=== PATIENT | male | born 1970 | race Caucasian/White ===

== ENCOUNTER → 2018-09-29 17:09 | Emergency (ER) | payer BC ==
--- NOTE | 2018-09-29 18:31 | ED ---
Abdominal Pain/Male - HPI Summary HPI Summary: A 48 y/o M referred from for ultrasound presents to ED with c/o intermittent R groin pain onset 2 weeks ago. The pain radiates down his RLE, and is described as "soreness." Associated sx: diffuse abd pain. Denies back pain, urinary sx. The symptoms are worse at night. He has not felt any lumps in his abd or groin. Surgical hx: appy, vasectomy. Pt notes lifting some heavy boxes while at work within the month. PMHx: asthma. - History of Current Complaint Chief Complaint: EDAbdPain Stated Complaint: SENT FROM [facility] FOR U/S OF GROIN PER PT Time Seen by Provider: 09/29/18 18:25 Hx Obtained From: Patient Onset/Duration: Lasting Weeks, Still Present Timing: Constant, Lasting Weeks Severity Initially: Mild Severity Currently: Mild Pain Intensity: 2 Pain Scale Used: 0-10 Numeric Location: Groin - R Radiates: Yes Radiates to: Other - RLE Character: Other: - soreness Aggravating Factor(s): Other: - worse at night Associated Signs And Symptoms: Positive: Other - pos: abd pain. Negative: Back Pain, Urinary Symptoms - Allergies/Home Medications Allergies/Adverse Reactions: Allergies Allergy/AdvReac Type Severity Reaction Status Date / Time No Known Allergies Allergy Verified 10/29/14 17:44 PMH/Surg Hx/FS Hx/Imm Hx Previously Healthy: Yes Endocrine/Hematology History: Denies: Hx Diabetes Cardiovascular History: Denies: Hx Congestive Heart Failure, Hx Hypertension Respiratory History: Reports: Hx Asthma History: Denies: Hx Renal Disease Neurological History: Reports: Hx Migraine - Surgical History Surgery Procedure, Year, and Place: vastectomy, appy Hx Anesthesia Reactions: No Infectious Disease History: No Infectious Disease History: Denies: History Other Infectious Disease, Traveled Outside the [place] in Last 30 Days - Family History Known Family History: Negative: Hypertension, Diabetes, Respiratory Disease - Social History Occupation: Employed Full-time Lives: With Family Alcohol Use: Rare Substance Use Type: Reports: None Smoking Status (MU): Never Smoked Tobacco Review of Systems Positive: Abdominal Pain Negative: dysuria, hematuria Musculoskeletal: Other - pos: r groin pain Negative: Other - neg: back pain All Other Systems Reviewed And Are Negative: Yes Physical Exam - Summary Physical Exam Summary: Appearance: Well-appearing, Well-nourished, lying in bed comfortably Skin: Warm, dry, no obvious rash Eyes: sclera anicteric, no conjunctival pallor ENT: mucous membranes moist, pharynx appears normal Neck: Supple, nontender Respiratory: Clear to auscultation, no signs of respiratory distress Cardiovascular: Normal S1, S2. No murmurs. Normal distal pulses in tibial and radial bilaterally. Abdomen: Soft, nontender, normal active bowel sounds present Musculoskeletal: Tenderness in R groin Neurological: A&Ox3, awake and alert, mentation is normal, speech is fluent and appropriate Psychiatric: affect is normal, does not appear anxious or depressed Triage Information Reviewed: Yes Vital Signs On Initial Exam: Initial Vitals Temp Pulse Resp BP Pulse Ox 97.7 F 61 16 136/90 100 09/29/18 17:36 09/29/18 17:36 09/29/18 17:36 09/29/18 17:36 09/29/18 17:36 Vital Signs Reviewed: Yes Diagnostics - Vital Signs Vital Signs Temp Pulse Resp BP Pulse Ox 09/29/18 17:36 97.7 F 61 16 136/90 100 - Laboratory Result Diagrams: 09/29/18 19:11 09/29/18 19:11 Lab Statement: Any lab studies that have been ordered have been reviewed, and results considered in the medical decision making process. - CT A/P CT CT Interpretation Completed By: Radiologist Summary of CT Findings: IMPRESSION: No acute intra-abdominal findings. ED provider has reviewed this report. Re-Evaluation - Re-Evaluation 1 Re-Evaluation Time: 21:31 Comment: Discussing CT and lab results with pt. Abdominal Pain Male Course/Dx - Course Course Of Treatment: Pt is a 48 y/o M presenting with intermittent R groin pain that radiates down his RLE, and generalized abd pain onset 2 weeks ago. Denies back pain, urinary sx. Surgical hx: appy, vasectomy. Lab work is unremarkable. A/P CT is unremarkable. This was obtained as the patient is quite difficult to examine due to the degree of his tenderness and apprehension, with the purpose to exclude a hernia. Will discharge patient home. - Diagnoses Provider Diagnoses: Right groin pain Discharge - Sign-Out/Discharge Documenting (check all that apply): Patient Departure - DC Patient Received Moderate/Deep Sedation with Procedure: No - Discharge Plan Condition: Good Disposition: HOME Patient Education Materials: Groin Pain (ED) Referrals: Brennon RECINOS,Berhane Valles [Primary Care Provider] - 1 Week (if not improving) - Billing Disposition and Condition Condition: GOOD Disposition: Home - Attestation Statements Document Initiated by Loboibe: Yes Documenting Scribe: Vincenzo Duckworth Provider For Whom Scribe is Documenting (Include Credential): Dr. Brodie Urena MD Scribe Attestation: Vincenzo Rodriguez scribed for Dr. Brodie Urena MD on 09/30/18 at 1057. Scribe Documentation Reviewed: Yes Provider Attestation: The documentation as recorded by the Vincenzo arrington accurately reflects the service I personally performed and the decisions made by , Dr. Brodie Urena MD Status of Scribe Document: Viewed
[2018-09-29 19:25] LABS: ABS Basophils 0 10^3/ul (0-0.2); ABS Eosinophils 0.2 10^3/ul (0-0.6); ABS Lymphocytes 2.2 10^3/ul (1.0-4.8); ABS Monocytes 0.8 10^3/ul (0-0.8); ABS Neutrophils 5.8 10^3/ul (1.5-7.7); ABS Nucleated RBC 0 10^3/ul; Eosinophil % 1.9 %; Hematocrit 42 % (36-46); Hemoglobin 14.3 g/dL (14.0-18.0); Lymphocyte % 24.1 %; Mean Corpuscular HGB Conc 34 g/dL (31-36); Mean Corpuscular Hemoglobin 28 pg (27-31); Mean Corpuscular Volume 84 fL (80-94); Mean Platelet Volume 9.3 fL (7.4-10.4); Nucleated Red Blood Cells % 0; Platelet Count 225 10^3/uL (150-450); Red Blood Count 5.03 10^6 /uL (4.18-5.48); Red Cell Distribution Width 14 % (10.5-15); White Blood Count 8.9 10^3/uL (3.5-10.8)
[2018-09-29 19:40] LABS: BUN/Creatinine Ratio 16.3 (8-20); Calcium 9.5 mg/dL (8.6-10.3); EGFR African American 106.7 (>60); EGFR Non-African American 88.2 (>60); Potassium 3.7 mmol/L (3.5-5.0)
[2018-09-29] MEDS: Iohexol 300* (CONTRAST) 10 ML SDV IV ONE (20:33)
[2018-09-29 21:39] VITALS: BP 124/70
== END | disposition home or self-care (01) ==
LOC: ED 17:09
DX: R10.9 Unspecified abdominal pain (principal)
CPT/HCPCS: 36415; 74177; 80048; 85025; 96374; 99283; Q9967